=== PATIENT | male | born 1945 | race Caucasian/White ===

== ENCOUNTER 2019-01-04 06:38 | Day surgery (SDC) ==
[2019-01-04] MEDS: BETADINE OPTH PREP OP PRN ×2 (07:10→08:40)
[2019-01-04] MEDS: TETRACAINE 0.5% UNIT-DOSE OP PRN ×2 (07:10→08:40)
[2019-01-04] MEDS: CYCLOGYL 2% OPTH OP PRN ×3 (07:11→07:21)
[2019-01-04] MEDS ORDERED: ZOFRAN 4 MG/2 ML IVP ONE (07:27)
[2019-01-04] MEDS ORDERED: LIDOCAINE 1% 20 ML MDV ID STA (07:27)
[2019-01-04] MEDS ORDERED: BSS WITH EPINEPHRINE OP ONE (07:27)
[2019-01-04] MEDS ORDERED: DEX-MOXI-KETOR OPTH INJ 1/0.5/0.4 MG/ML IO ONE (07:27)
[2019-01-04] MEDS ORDERED: LIDOCAINE 1%/PHENYLEPHRINE 1.5% BSS (SURGERY) INTRAOCULA ONE (07:27)
[2019-01-04 07:31] VITALS: TEMP 97.8
[2019-01-04] MEDS ORDERED: ZOFRAN 4 MG/2 ML ONE (08:39)
[2019-01-04] MEDS ORDERED: VERSED ONE (08:39)
[2019-01-04] MEDS ORDERED: SUBLIMAZE ONE (08:39)
[2019-01-06 09:14] VITALS: BP 132/67
== END 2019-01-04 09:25 | disposition home or self-care (01) ==
LOC: SURG 06:38
PROVIDERS: ATTEND Ophthalmology
DX: H25.812 Combined forms of age-related cataract, left eye (principal)

== ENCOUNTER 2019-01-20 06:34 | Day surgery (SDC) ==
[2019-01-20] MEDS: BETADINE OPTH PREP OP PRN ×2 (07:00→08:13)
[2019-01-20] MEDS: TETRACAINE 0.5% UNIT-DOSE OP PRN ×2 (07:00→08:10)
[2019-01-20] MEDS: CYCLOGYL 2% OPTH OP PRN ×3 (07:01→07:11)
[2019-01-20] MEDS ORDERED: DEX-MOXI-KETOR OPTH INJ 1/0.5/0.4 MG/ML IO ONE (07:08)
[2019-01-20] MEDS ORDERED: BSS WITH EPINEPHRINE OP ONE (07:08)
[2019-01-20] MEDS ORDERED: LIDOCAINE 1%/PHENYLEPHRINE 1.5% BSS (SURGERY) INTRAOCULA ONE (07:08)
[2019-01-20] MEDS ORDERED: ZOFRAN 4 MG/2 ML IVP ONE (07:08)
[2019-01-20] MEDS ORDERED: LIDOCAINE 1% 20 ML MDV ID STA (07:08)
[2019-01-20 07:14] VITALS: TEMP 97.4
[2019-01-20] MEDS ORDERED: ZOFRAN 4 MG/2 ML ONE (08:30)
[2019-01-20] MEDS ORDERED: VERSED ONE (08:30)
[2019-01-20] MEDS ORDERED: SUBLIMAZE ONE (08:30)
[2019-01-20 09:07] VITALS: BP 123/69
== END 2019-01-20 09:15 | disposition home or self-care (01) ==
LOC: SURG 06:34
PROVIDERS: ATTEND Ophthalmology
DX: H25.811 Combined forms of age-related cataract, right eye (principal)